=== PATIENT | male | born 1945 | race Caucasian/White ===

== ENCOUNTER 2017-10-14 21:42 | Emergency (ER) | payer BC, OTHER ==
[2017-10-14] MEDS ORDERED: Tetracaine HCl/PF 0.5% 4 ML Bottle EYERT ONE (22:39)
--- NOTE | 2017-10-14 22:48 | EDM.PDOC ---
ED HPI GENERAL MEDICAL PROBLEM - General Chief Complaint: Eye Problems Stated Complaint: POKED IN RIGHT EYE WITH TREE BRANCH Time Seen by Provider: 10/14/17 22:36 Source of Information: Reports: Patient, Family History Limitations: Reports: No Limitations - History of Present Illness INITIAL COMMENTS - FREE TEXT/NARRATIVE: This young man comes in with a laceration to his left knee and some injuries to his feet after a shower door shattered as he was getting out of it. This happened just prior to arrival. He is up-to-date on all shots. Right Eye Pain Score (Numeric/FACES): 4 - Related Data Allergies Allergy/AdvReac Type Severity Reaction Status Date / Time No Known Allergies Allergy Verified 10/14/17 22:30 Home Meds: Home Meds NK [No Known Home Meds] 10/14/17 [History] Social & Family History - Tobacco Use Smoking Status *Q: Never Smoker Second Hand Smoke Exposure: No - Caffeine Use Caffeine Use: Reports: Coffee - Recreational Drug Use Recreational Drug Use: No ED ROS GENERAL - Review of Systems Review Of Systems: ROS reveals no pertinent complaints other than HPI. ED EXAM GENERAL W FULL EYE - Physical Exam Exam: See Below Exam Limited By: No Limitations General Appearance: Alert, WD/WN, No Apparent Distress Skin Exam: Other (Skin exam shows a 3.0 cm superficial laceration to the anterior left thigh just above the knee. It's very superficial but it's gaping open due to skin elasticity. It has been bandaged. There are some very small scratches to the left hand at the base of the index finger these were checked there is no glass no sutures are needed. His feet were examined. The fuel testing technician has artery been over his feet with splinter forceps and removed a number of tiny shards of glass. I checked his feet afterwards by running my hands over the feet I did grain picker a few more little tiny specks of glass which were removed and one which I had use of forceps and I'm confident that we've gotten all of the shards and small flecks of glass. Nothing nothing on his feet required suturing.) Course - Vital Signs Last Recorded V/S: Last Vital Signs Temp 36.2 C 10/14/17 22:28 Pulse 71 10/14/17 22:28 Resp 14 10/14/17 22:28 BP 133/84 10/14/17 22:28 Pulse Ox 94 L 10/14/17 22:28 - Orders/Labs/Meds Meds: Medications Discontinued Medications Generic Name Dose Route Start Last Admin Trade Name Karlo PRN Reason Stop Dose Admin Tetracaine HCl 1 ml 10/14/17 22:39 Tetracaine 0.5% Steri-Unit Anna EYERT 10/14/17 22:40 ASDIRECTED ONE - Re-Assessments/Exams Free Text/Narrative Re-Assessment/Exam: 10/14/17 22:46 Procedure: Laceration repair. The wound was anesthetized with a total of about 8 mL of 1% plain lidocaine giving good local anesthesia. The wound and surrounding areas were then scrubbed with some Hibiclens and saline solution and then was thoroughly irrigated with saline solution. There are 2 small arterial bleeders that were ligated with 4-0 Vicryl. The 4-0 Vicryl loops then used to place subcuticular stitch will check gave a good cosmetic closure. A top stitch a running Independence stitch was then placed with 4-0 nylon giving a good cosmetic result. Bacitracin dressing was then applied Departure - Departure Time of Disposition: 22:48 Disposition: Home, Self-Care 01 Condition: Fair Clinical Impression: Laceration of left thigh - Discharge Information Referrals: Genaro Guzman, [Primary Care Provider] - Additional Instructions: Remove the dressing in one or 2 days. Then wash gently with soap and water daily. Apply a small bit of antibiotic ointment and keep covered with a dressing. Sutures should be removed by your Dr. or health care provider in 10 days. Feet shouldn't need any treatment however if any more specks of glass are detected then rubbing your hand over the area or scraping it with the something like a credit card should remove any more flecks of glass
--- NOTE | 2017-10-14 23:09 | EDM.PDOC ---
ED HPI GENERAL MEDICAL PROBLEM - General Chief Complaint: Eye Problems Stated Complaint: POKED IN RIGHT EYE WITH TREE BRANCH Time Seen by Provider: 10/14/17 22:36 Source of Information: Reports: Patient, Family History Limitations: Reports: No Limitations - History of Present Illness INITIAL COMMENTS - FREE TEXT/NARRATIVE: This man comes in with an injury to his right eye. It happened just prior to arrival he was poked in the eye with a small branch from a time 3. His vision is unaffected he feels a scratchiness to the lateral part of the right eye. Right Eye Pain Score (Numeric/FACES): 4 - Related Data Allergies Allergy/AdvReac Type Severity Reaction Status Date / Time No Known Allergies Allergy Verified 10/14/17 22:30 Home Meds: Home Meds NK [No Known Home Meds] 10/14/17 [History] Social & Family History - Tobacco Use Smoking Status *Q: Never Smoker Second Hand Smoke Exposure: No - Caffeine Use Caffeine Use: Reports: Coffee - Recreational Drug Use Recreational Drug Use: No ED ROS GENERAL - Review of Systems Review Of Systems: ROS reveals no pertinent complaints other than HPI. ED EXAM GENERAL W FULL EYE - Physical Exam Exam: See Below Exam Limited By: No Limitations General Appearance: Alert, WD/WN Eye Exam: Right Eye: Conjunctival Injection (There is abrasion to the conjunctiva just lateral to the lateral margin of the iris. It's small no more than 2-3 mm in diameter. The globe has not been penetrated. There are small amount of subcutaneous conjunctival hemorrhage.), Other (The lids were everted and there is no evidence of a foreign body. There is a very small abrasion or laceration to the upper lid about custodial between the palpebral margin and the eyebrow doesn't need any kind of treatment) Visual Acuity (R) 20/: 30 Visual Acuity (L) 20/: 30 Cornea Exam: Right: Normal Appearance Extraocular Movements: Bilateral: Intact Anterior Chamber: Right: Normal Appearance Course - Vital Signs Last Recorded V/S: Last Vital Signs Temp 36.2 C 10/14/17 22:28 Pulse 71 10/14/17 22:28 Resp 14 10/14/17 22:28 BP 133/84 10/14/17 22:28 Pulse Ox 94 L 10/14/17 22:28 - Orders/Labs/Meds Meds: Medications Discontinued Medications Generic Name Dose Route Start Last Admin Trade Name Karlo PRN Reason Stop Dose Admin Tetracaine HCl 1 ml 10/14/17 22:39 10/14/17 22:43 Tetracaine 0.5% Steri-Unit Anna EYERT 10/14/17 22:40 1 ml ASDIRECTED ONE Administration Departure - Departure Time of Disposition: 23:15 Disposition: Home, Self-Care 01 Condition: Fair Clinical Impression: Conjunctival abrasion - Discharge Information Referrals: Genaro Guzman DO [Primary Care Provider] - Forms: ED Department Discharge Additional Instructions: Apply gentamicin ophthalmic solution 2 drops 4 times a day to the right eye. The eye will continue to have a sub-conjunctival hemorrhage that is it will look bloodshot for a couple of days. Your vision should not be affected. This injury to the conjunctiva will heal very quickly.
== END 2017-10-14 23:21 | disposition home or self-care (01) ==
LOC: JP.ED 21:42
DX: S05.01XA Injury of conjunctiva and corneal abrasion without foreign body, right eye, initial encounter (principal); W22.8XXA Striking against or struck by other objects, initial encounter
CPT/HCPCS: 99283; A9270